=== PATIENT | male | born 1970 | race Caucasian/White ===

== ENCOUNTER 2024-08-26 01:32 | Outpatient (CLI) | payer OTHER, SELFPAY ==
--- NOTE | 2024-08-26 | DI.MRI_ITS ---
Exam(s) MR UPPER JOINT RT WO EXAM: MR UPPER JOINT RT WO CLINICAL HISTORY: Trauma, pain, M25.511; adhesive capsulitis, impingement,? rotator cuff tear. TECHNIQUE: Multiplanar multisequence MRI was performed. COMPARISON: CR Shoulder Right Complete 2 View from 07/29/2024 FINDINGS: The examination is limited due to patient motion artifact. BONES: There is no fracture or contusion pattern. Small subchondral cysts are seen in the humeral hea d. JOINTS: Very mild degenerative signal changes are seen at the acromioclavicular joint. The glenohume ral joint is normal. TENDONS: Supraspinatus: There is hyperintense signal seen on the bursal surface of the supraspinatus tendon at its insertion site anteriorly consistent with a partial tear. Infraspinatus: Unremarkable. Subscapularis: There is hyperintense signal seen at the insertion site of the subscapularis tendon fuchs spicious for partial tear. Teres Minor: Unremarkable. Biceps and [place]: There is medial dislocation of the biceps tendon. MUSCLES: Very mild fatty atrophy of the teres minor muscle. GLENOID LABRUM: Unremarkable on this noncontrast examination. SOFT TISSUES: There is a small amount of fluid in the subacromial bursa. LIGAMENTS: Unremarkable. OTHER: There is a small amount of fluid in the subacromial bursa. IMPRESSION: 1. Small bursal surface tear of the supraspinatus tendon at its insertion site anteriorly. 2. Medial dislocation of the biceps tendon. 3. Findings suspicious for partial tear of the subscapularis tendon at its insertion site. 4. Small amount of fluid in the subacromial bursa. DATA REPOSITORY:
== END 2024-08-26 01:52 ==
LOC: DI 01:32
PROVIDERS: PCP Orthopaedic Surgery; Visit Provider Orthopaedic Surgery
DX: M75.111 Incomplete rotator cuff tear or rupture of right shoulder, not specified as traumatic (principal)
CPT/HCPCS: 73221